=== PATIENT | female | born 1935 | race Caucasian/White ===

== ENCOUNTER 2016-08-24 20:24 | Emergency (ER) | payer OTHER ==
[~2016-08-24] VITALS: Ht 162.6 cm; Wt 80.6 kg
[2016-08-24 20:27] VITALS: BP 168/90
[2016-08-24] MEDS ORDERED: LIDOCAINE 1%, 20ML ONE ×2 (20:51→20:53)
[2016-08-24] MEDS ORDERED: DIPH,PERTUSS(ACELL),TET VAC/PF 0.5 ML IM-VACC ONE (21:00)
[2016-08-24] MEDS ORDERED: LIDOCAINE 1%, 20ML SQ ONE (21:00)
[2016-08-24] MEDS ORDERED: AMOXICILLIN/CLAV 875-125MG TABLET PO ONE (21:30)
== END 2016-08-24 22:08 | disposition home or self-care (01) ==
LOC: ED 21:50
DX: S61.411A Laceration without foreign body of right hand, initial encounter (principal); W54.0XXA Bitten by dog, initial encounter; Y93.89 Activity, other specified; Y92.89 Other specified places as the place of occurrence of the external cause; Y99.8 Other external cause status
CPT/HCPCS: 12001; 90471; 90715

== ENCOUNTER 2020-06-11 13:34 | Observation (INO) | payer MEDICARE, OTHER ==
[~2020-06-11] VITALS: Ht 162.6 cm; Wt 69.3 kg
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
[2020-06-11] MEDS ORDERED: SODIUM CHLORIDE FLUSH 10ML SYR IVF ONE (14:00)
[2020-06-11] MEDS ORDERED: SODIUM CHLORIDE 0.9% 1,000 ML IV ONE (14:00)
--- NOTE | 2020-06-11 14:28 | NUR ---
attempt to call family unsuccessful
--- NOTE | 2020-06-11 15:14 | NUR ---
PIV PLACED, CT NOTIFIED PT READY FOR IMAGING.
[2020-06-11 15:41] LABS: BASOPHILS % (AUTO) 0 % (0-1); EOSINOPHILS % (AUTO) 0 % (1-7); LYMPHOCYTES % (AUTO) 6 % (22-44); MEAN CORPUSCULAR HEMOGLOBIN 29.3 pg (27.0-34.8); MEAN CORPUSCULAR HGB CONC 32.7 g/dL (32.4-35.8); MEAN PLATELET VOLUME 8.9 fL (7.4-10.4); MONOCYTES % (AUTO) 8 % (2-9); NEUTROPHILS % (AUTO) 86 % (42-75); PLATELET COUNT 220 x10^3/uL (130-400); RED CELL DISTRIBUTION WIDTH 13.7 % (9.6-15.2)
[2020-06-11 15:47] LABS: ALBUMIN 2.5 g/dL (3.4-5.0); ANION GAP 8 mmol/L (5-15); CHLORIDE 109 mmol/L (98-107); MD NO
[2020-06-11 15:51] LABS: ALANINE AMINOTRANSFERASE 20 U/L (12-78); ALKALINE PHOSPHATASE 142 U/L (45-117); BILIRUBIN,TOTAL 1.5 mg/dL (0.2-1.0); CREATINE KINASE, TOTAL 131 U/L (26-192); CREATININE 0.79 mg/dL (0.55-1.02); TOTAL PROTEIN 7.2 g/dL (6.4-8.2)
--- NOTE | 2020-06-11 16:24 | NUR ---
PT BACK FROM IMAGING. URINE COLLECTED. PT RESTING IN BED
[2020-06-11 16:36] LABS: MICROSCOPIC INDICATED
[2020-06-11] MEDS ORDERED: POTASSIUM CHLORIDE 40 MEQ in SODIUM CHLORIDE 0.9% 500 ML IV ONE (17:00)
--- NOTE | 2020-06-11 17:44 | NUR ---
REPORT CALLED TO PARAMJIT FLOR, AWARE NEW PIV PLACED
[2020-06-11] MEDS ORDERED: ACETAMINOPHEN 325 MG TABLET PO PRN (18:00)
[2020-06-11] MEDS ORDERED: ENOXAPARIN 40 MG/0.4 ML SQ SCH (18:00)
[2020-06-11] MEDS ORDERED: POTASSIUM CHLORIDE 40 MEQ in SODIUM CHLORIDE 0.9% 1,000 ML IV SCH (18:00)
[2020-06-11 18:11] LABS: TROPONIN I 0.023 ng/mL (0.000-0.045)
[2020-06-11 18:25] VITALS: BP 155/79
[2020-06-11 19:12] VITALS: BP 130/67
[2020-06-11] MEDS: FLUTICASONE NASAL SPRAY 16GM NAS SCH (21:47)
[2020-06-11 23:58] LABS: TROPONIN I 0.024 ng/mL (0.000-0.045)
[2020-06-12 02:11] VITALS: BP 132/69
[2020-06-12 05:09] LABS: BASOPHILS % (AUTO) 1 % (0-1); EOSINOPHILS % (AUTO) 3 % (1-7); LYMPHOCYTES % (AUTO) 9 % (22-44); MEAN CORPUSCULAR HGB CONC 33.2 g/dL (32.4-35.8); MEAN PLATELET VOLUME 9.2 fL (7.4-10.4); MONOCYTES % (AUTO) 8 % (2-9); NEUTROPHILS % (AUTO) 80 % (42-75); PLATELET COUNT 224 x10^3/uL (130-400); RED BLOOD COUNT 3.63 x10^6/uL (3.82-5.3); RED CELL DISTRIBUTION WIDTH 13.7 % (9.6-15.2)
[2020-06-12 05:12] LABS: MD NO
[2020-06-12 05:17] LABS: ANION GAP 10 mmol/L (5-15); CALCIUM 8.4 mg/dL (8.5-10.1); CHLORIDE 110 mmol/L (98-107)
[2020-06-12 05:19] LABS: CREATININE 0.71 mg/dL (0.55-1.02)
[2020-06-12] MEDS ORDERED: MAGNESIUM SULFATE PMX 2GM/50ML 50 ML IV ONE (06:30)
[2020-06-12] MEDS ORDERED: POTASSIUM CHLORIDE 20 MEQ TAB.ER.PRT PO ONE (06:30)
[2020-06-12 07:13] VITALS: BP 148/70
[2020-06-12] MEDS: SENNA/DOCUSATE TABLET PO SCH (09:00)
[2020-06-12] MEDS: FLUTICASONE NASAL SPRAY 16GM NAS SCH ×2 (09:23→22:23)
[2020-06-12] MEDS ORDERED: PYRIDOXINE (VITAMIN B6) 100 MG TAB PO SCH (10:30)
[2020-06-12] MEDS ORDERED: DOXYLAMINE 25MG TABLET PO SCH (10:30)
[2020-06-12] MEDS: ENOXAPARIN 40 MG/0.4 ML SQ SCH (10:56)
[2020-06-12 12:06] VITALS: BP 152/82
[2020-06-12 19:10] VITALS: BP 154/70
[2020-06-13 01:03] VITALS: BP 147/75
[2020-06-13 07:14] VITALS: BP 145/79
[2020-06-13] MEDS: FLUTICASONE NASAL SPRAY 16GM NAS SCH ×2 (07:44→21:03)
[2020-06-13] MEDS: SENNA/DOCUSATE TABLET PO SCH (07:44)
[2020-06-13 08:40] LABS: BASOPHILS % (AUTO) 1 % (0-1); EOSINOPHILS % (AUTO) 2 % (1-7); LYMPHOCYTES % (AUTO) 10 % (22-44); MEAN CORPUSCULAR HEMOGLOBIN 29.4 pg (27.0-34.8); MEAN CORPUSCULAR HGB CONC 32.7 g/dL (32.4-35.8); MONOCYTES % (AUTO) 6 % (2-9); NEUTROPHILS % (AUTO) 81 % (42-75); PLATELET COUNT 255 x10^3/uL (130-400); RED BLOOD COUNT 3.87 x10^6/uL (3.82-5.3); RED CELL DISTRIBUTION WIDTH 13.7 % (9.6-15.2)
[2020-06-13 08:45] LABS: MD NO
[2020-06-13 08:54] LABS: ALBUMIN 2.5 g/dL (3.4-5.0); ANION GAP 9 mmol/L (5-15); CHLORIDE 112 mmol/L (98-107)
[2020-06-13 08:59] LABS: ALANINE AMINOTRANSFERASE 19 U/L (12-78); ALKALINE PHOSPHATASE 142 U/L (45-117); BILIRUBIN,TOTAL 0.9 mg/dL (0.2-1.0); CREATININE 0.68 mg/dL (0.55-1.02); TOTAL PROTEIN 7.4 g/dL (6.4-8.2)
[2020-06-13] MEDS: ENOXAPARIN 40 MG/0.4 ML SQ SCH (11:47)
[2020-06-13 14:23] VITALS: BP 169/82
[2020-06-13 19:45] VITALS: BP 145/69
[2020-06-14 00:47] VITALS: BP 149/69
[2020-06-14 07:16] LABS: ANION GAP 7 mmol/L (5-15); CALCIUM 8.5 mg/dL (8.5-10.1); CHLORIDE 114 mmol/L (98-107); CREATININE 0.67 mg/dL (0.55-1.02)
[2020-06-14 08:10] VITALS: BP 148/75
[2020-06-14] MEDS: SENNA/DOCUSATE TABLET PO SCH (08:58)
[2020-06-14] MEDS: FLUTICASONE NASAL SPRAY 16GM NAS SCH ×2 (08:58→20:03)
[2020-06-14] MEDS ORDERED: ATEN50TA41 PO (10:06)
[2020-06-14] MEDS: ENOXAPARIN 40 MG/0.4 ML SQ SCH (12:52)
[2020-06-14 14:17] VITALS: BP 147/75
[2020-06-14] MEDS ORDERED: POTASSIUM CHLORIDE 20 MEQ TAB.ER.PRT PO ONE (15:00)
[2020-06-14 19:31] VITALS: BP 159/84
[2020-06-15 01:49] VITALS: BP 143/79
[2020-06-15 07:41] VITALS: BP 150/75
[2020-06-15 08:54] LABS: ANION GAP 9 mmol/L (5-15); CALCIUM 9.3 mg/dL (8.5-10.1); CHLORIDE 113 mmol/L (98-107); CREATININE 0.69 mg/dL (0.55-1.02)
[2020-06-15] MEDS: FLUTICASONE NASAL SPRAY 16GM NAS SCH ×2 (10:21→20:59)
[2020-06-15] MEDS: SENNA/DOCUSATE TABLET PO SCH (10:21)
[2020-06-15] MEDS: ATENOLOL 50 MG TABLET PO SCH (10:22)
[2020-06-15] MEDS: ENOXAPARIN 40 MG/0.4 ML SQ SCH (10:22)
[2020-06-15 13:26] VITALS: BP 152/77
[2020-06-15] MEDS ORDERED: DIPHENHYDRAMINE/ZINC CRM 2%, 30GM TP ONE (18:00)
[2020-06-15 19:53] VITALS: BP 164/77
[2020-06-16 00:27] VITALS: BP 139/85
[2020-06-16 06:35] VITALS: BP 149/72
[2020-06-16] MEDS: ATENOLOL 50 MG TABLET PO SCH (08:24)
[2020-06-16] MEDS: FLUTICASONE NASAL SPRAY 16GM NAS SCH ×2 (08:27→20:14)
[2020-06-16] MEDS: SENNA/DOCUSATE TABLET PO SCH (08:27)
[2020-06-16] MEDS: ENOXAPARIN 40 MG/0.4 ML SQ SCH (11:35)
[2020-06-16 12:03] VITALS: BP 156/82
[2020-06-16 18:20] VITALS: BP 167/76
[2020-06-16 19:33] VITALS: BP 154/71
[2020-06-17 01:14] VITALS: BP 157/57
[2020-06-17 06:53] VITALS: BP 152/77
[2020-06-17] MEDS: FLUTICASONE NASAL SPRAY 16GM NAS SCH (09:00)
[2020-06-17] MEDS: SENNA/DOCUSATE TABLET PO SCH (09:00)
[2020-06-17] MEDS: ATENOLOL 50 MG TABLET PO SCH (09:23)
[2020-06-17] MEDS: ENOXAPARIN 40 MG/0.4 ML SQ SCH (10:40)
[2020-06-17 13:13] VITALS: BP 160/78
== END 2020-06-17 14:20 | disposition home or self-care (01) ==
LOC: ED 16:45 → EDIP 16:46 → INTOOBSV 16:46 → OBSVTOIN 16:46 → ED 17:27 → 4EST 18:09 → 3N 06-16 11:52 → UNDODISIN 06-17 14:20
PROVIDERS: ADMIT Internal Medicine; ATTEND Hospitalist
DX: E87.6 Hypokalemia (principal); E86.0 Dehydration; S89.92XA Unspecified injury of left lower leg, initial encounter; F03.90 Unspecified dementia, unspecified severity, without behavioral disturbance, psychotic disturbance, mood disturbance, and anxiety; R79.89 Other specified abnormal findings of blood chemistry; I10 Essential (primary) hypertension; R74.01 Elevation of levels of liver transaminase levels; I25.10 Atherosclerotic heart disease of native coronary artery without angina pectoris; Z95.1 Presence of aortocoronary bypass graft; Z87.891 Personal history of nicotine dependence; W19.XXXA Unspecified fall, initial encounter; Y93.89 Activity, other specified; Y92.89 Other specified places as the place of occurrence of the external cause
CPT/HCPCS: 36415; 70450; 71045; 73564; 80048; 80053; 81001; 82550; 83735; 84484; 85025; 87086; 93005; 93880; 93970; 96361; 96365; 96366; 96368; 96372; 97162; 97166; 99285; G0378; J1650; J3475; J3480; J7030; J7040